=== PATIENT | female | born 1975 | race Caucasian/White ===

== ENCOUNTER 2023-07-16 06:28 | Day surgery (SDC) | payer OTHER ==
[2023-07-14 09:22] VITALS: BMI 33.1
[2023-07-16 06:59] VITALS: RESP 16
[2023-07-16] MEDS ORDERED: ONDANSETRON 4 MG/2 ML VIAL IVPUSH PRN (07:11)
[2023-07-16] MEDS ORDERED: oxyCODONE HCL 5 MG TABLET PO PRN (07:11)
[2023-07-16] MEDS ORDERED: LIDOCAINE HCL 1%, 10 MG/ML (20ML VIAL) ONE (07:13)
[2023-07-16] MEDS ORDERED: BUPIVACAINE HCL/PF 0.5% (5MG/ML) 10 ML VIAL ONE ×2 (07:13→08:34)
[2023-07-16] MEDS ORDERED: LACTATED RINGERS SOLUTION 1,000 ML IV SCH (07:15)
[2023-07-16] MEDS ORDERED: ACETAMINOPHEN INJECTION 100 ML IVPB ONE (07:15)
[2023-07-16] MEDS ORDERED: MIDAZOLAM HCL 2 MG/2 ML SINGLE DOSE VIAL ONE ×2 (07:51→08:45)
[2023-07-16] MEDS ORDERED: PROPOFOL 20 ML ONE ×3 (08:06→08:44)
[2023-07-16 09:31] VITALS: TEMP 97.7
[2023-07-16 09:59] VITALS: BP 108/66; PULSE 88
== END 2023-07-16 10:40 | disposition home or self-care (01) ==
LOC: FASU 06:28
PROVIDERS: ATTEND Orthopaedic Surgery
PROC: 01N50ZZ Release Median Nerve, Open Approach (ICD-10-PCS; principal; 2023-07-16 08:26)
PROC: 0JBG0ZZ Excision of Right Lower Arm Subcutaneous Tissue and Fascia, Open Approach (ICD-10-PCS; 2023-07-16 08:26)
DX: G56.01 Carpal tunnel syndrome, right upper limb (principal); D17.21 Benign lipomatous neoplasm of skin and subcutaneous tissue of right arm
CPT/HCPCS: 81025; 88304-TC